=== PATIENT | female | born 1970 | race Two or more races ===

== ENCOUNTER 2017-06-23 16:35 | Emergency (ER) | payer OTHER ==
[~2017-06-23] VITALS: Ht 162.6 cm; Wt 104.3 kg
[2017-06-23 17:11] VITALS: BP 145/79
[2017-06-23] MEDS ORDERED: Norco 5mg/325mg tab ORAL ONE (17:15)
[2017-06-23] MEDS ORDERED: IBUPROFEN600 MG ORAL (17:42)
[2017-06-23 17:51] VITALS: BP 145/79
--- NOTE | 2017-06-23 21:26 | Emergency Room Report ---
History of Present Illness General Chief Complaint: Pain Source: Patient (HEIDE SCHULTE) Present Illness HPI The patient is a 46-year-old female presenting for bilateral hand pain. She states the pain began 2 weeks prior for no known reason primarily felt at the fingers. Pain has been increasing gradually and is now 8/10 dull ache. Worse with finger extension. She denies any injury to the area. 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 She denies any other symptoms including F, chills, rash, numbness/tingling (HEIDE SCHULTE P.A.) Allergies: Coded Allergies: No Known Allergies (Unverified , 06/23/17) Patient History Past Medical History: see triage record Pertinent Family History: none Reviewed Nursing Documentation: PMH: Agreed, PSxH: Agreed (HEIDE SCHULTE) Nursing Documentation-PMH Past Medical History: No Stated History (HEIDE SCHULTE) Review of Systems All Other Systems: negative except mentioned in HPI (HEIDE SCHULTE P.[employer]) Physical Exam Vital Signs Date Time Temp Pulse Resp B/P (MAP) Pulse Ox O2 Delivery O2 Flow Rate FiO2 06/23/17 16:39 97.9 88 20 145/79 99 Room Air Sp02 EP Interpretation: reviewed, normal General Appearance: no apparent distress, alert, GCS 15, non-toxic Head: normocephalic, atraumatic Eyes: bilateral eye normal inspection, bilateral eye PERRL ENT: hearing grossly normal, normal pharynx, no angioedema, normal voice Neck: full range of motion, supple/symm/no masses Musculoskeletal: back normal, gait/station normal, decreased range of motion - decreased extension of fingers on bilat hands, tender - dorsal pain with extension of fingers Neurologic: alert, oriented x3, responsive, motor strength/tone normal, sensory intact, speech normal Psychiatric: judgement/insight normal, memory normal, mood/affect normal, no suicidal/homicidal ideation Skin: normal color, no rash, warm/dry, well hydrated (HEIDE SCHULTE) Medical Decision Making PA Attestation Dr. Negrete is my supervising physician. Patient management was discussed with my supervising physician (HEIDE SCHULTE) Diagnostic Impression: Primary Impression: Right hand tendonitis Additional Impression: Left hand tendonitis ER Course The patient is a 46-year-old female presenting for bilateral hand pain Ddx considered include but not limited to sprain/strain, fracture, contusion, tendonitis, carpal tunnel syndrome, among others PE: Afebrile. NAD MSK: bilat hands are in flexion at rest. Noted pain with finger extension. SILT. Skin is warm and dry. No discoloration. No edema cap Refill less than 2 seconds X-ray of both hands are unremarkable The patient is discharged home with instructions for RICE and is given prescription for motrin. She is to followup with her primary doctor (HEIDE SCHULTE) Other X-Ray Diagnostic Results Other X-Ray Diagnostic Results #1: X-Ray ordered: L hand # of Views/Limited Vs Complete: 3 View Indication: Pain EP Interpretation: Yes Interpretation: no dislocation, no soft tissue swelling, no fractures Impression: No acute disease Electronically Signed by: KIMO Bobo Text I have reviewed the xray with my supervising physician and interpretation is that there are no fractures, dislocations or soft tissue swelling. Other X-Ray Diagnostic Results #2: X-Ray ordered: R hand # of Views/Limited Vs Complete: 3 View Indication: Pain EP Interpretation: Yes Interpretation: no dislocation, no soft tissue swelling, no fractures Impression: No acute disease Electronically Signed by: KIMO Bobo Text I have reviewed the xray with my supervising physician and interpretation is that there are no fractures, dislocations or soft tissue swelling. (HEIDE SCHULTE) Other X-Ray Diagnostic Results : Electronically Signed by: Mohinder documentation reviewed by me and is accurate, Ricky Negrete MD. both (Ricky Negrete M.D.) Last Vital Signs Date Time Temp Pulse Resp B/P (MAP) Pulse Ox O2 Delivery O2 Flow Rate FiO2 06/23/17 17:51 97.9 75 20 145/79 99 Room Air Status: improved (HEIDE SCHULTE.[employer]) Disposition: HOME, SELF-CARE Condition: Improved Scripts Ibuprofen* (MOTRIN*) 600 Mg Tablet 600 MG ORAL Q8H Y for For Pain, #30 TAB 0 Refills Prov: HEIDE SCHULTE 06/23/17 Referrals[facility] (PCP) Patient Instructions: REJI Sharp for Routine Care of Injuries Additional Instructions: I discussed my findings with the patient. All questions and concerns have been answered. Treatment and medication compliance have been addressed. I advised the patient that they need to follow up with PMD in 3-5 days. Return to ED if symptoms worsen, new symptoms arise, or if needed for any reason. Patient verbalized understanding of discharge instructions. HEIDE SCHULTE Jun 23, 2017 21:26 Ricky Negrete M.D. Jun 24, 2017 05:28
--- NOTE | 2017-06-24 12:26 | Diagnostic Imaging Report ---
Indication: pain Findings: 3 views of the left hand were obtained. Normal alignment is demonstrated. No acute fractures, erosions, or periosteal reaction are seen. Soft tissues are unremarkable. Impression: No acute findings.
--- NOTE | 2017-06-24 12:27 | Diagnostic Imaging Report ---
Indication: pain Findings: 3 views of the right hand were obtained. Normal bony mineralization and alignment are demonstrated. No acute fractures, erosions, or periosteal reaction are seen. Soft tissues are unremarkable. Impression: No acute findings.
== END 2017-06-23 17:52 | disposition home or self-care (01) ==
LOC: EMR 17:38
DX: M79.642 Pain in left hand (principal); M79.641 Pain in right hand; M77.9 Enthesopathy, unspecified
CPT/HCPCS: 99284

== ENCOUNTER 2017-10-16 13:43 | Emergency (ER) | payer OTHER ==
[~2017-10-16] VITALS: Ht 167.6 cm; Wt 95.3 kg
[~2017-10-16 13:43] MED LIST: IBUPROFEN600 MG ORAL
[2017-10-16] MEDS ORDERED: Phenazopyridine 200mg tab ORAL ONE (14:30)
[2017-10-16 14:47] LABS: APPEARANCE,URINE CLEAR; BILIRUBIN, URINE NEGATIVE (NEGATIVE); COLOR,URINE PALE YELLOW; GLUCOSE, URINE (UA) NEGATIVE (NEGATIVE); KETONES,URINE NEGATIVE (NEGATIVE); LEUKOCYTE ESTERASE ,URINE 1+ (NEGATIVE); NITRITE,URINE NEGATIVE (NEGATIVE); PH,URINE 7 (4.5-8.0); PROTEIN,URINE NEGATIVE (NEGATIVE); UROBILINOGEN,URINE NORMAL MG/DL (0.0-1.0)
--- NOTE | 2017-10-16 15:11 | Emergency Room Report ---
History of Present Illness General Chief Complaint: Female Urogenital Problems Source: Patient, Family Member (Yaa Leo) Present Illness HPI 46 YO Female Pt. presents to the ED c/o 06/25 in severity dysuria, and abdominal distention feeling after holding her urine for a long time yesterday. Reports intermittent dysuria denies hematuria, nausea, vomiting, low back pain , fevers or chills. Pt. describes urgency. She reports that when she urinates she has pain in the groin and radiates down into the bilateral medial thighs. Patient denies abdominal tenderness, vaginal d/c, vaginal bleeding, swollen tender lymph nodes. denies constipation or diarrhea. Denies CP, Palpitations, LOC, AMS, dizziness, Changes in Vision, Sensation, paresthesias, or a sudden severe headache. (Yaa Leo) Allergies: Coded Allergies: No Known Allergies (Unverified , 06/23/17) Patient History Past Medical History: see triage record Past Surgical History: none Pertinent Family History: none Last Menstrual Period: none Now: No Immunizations: UTD Reviewed Nursing Documentation: PMH: Agreed, PSxH: Agreed (Yaa Leo) Nursing Documentation-PMH Past Medical History: No Stated History (Yaa Leo) Review of Systems All Other Systems: negative except mentioned in HPI (Yaa Leo) Physical Exam Vital Signs Date Time Temp Pulse Resp B/P (MAP) Pulse Ox O2 Delivery O2 Flow Rate FiO2 10/16/17 14:01 98.1 87 18 136/90 98 Room Air Sp02 EP Interpretation: reviewed, normal General Appearance: no apparent distress, alert, GCS 15, non-toxic Head: normocephalic, atraumatic ENT: hearing grossly normal, normal voice Neck: full range of motion Respiratory: lungs clear, normal breath sounds, speaking full sentences Cardiovascular #1: regular rate, rhythm Gastrointestinal: normal bowel sounds, non tender, soft, other - abdominal exam is benign Genitourinary: normal inspection, no CVA tenderness Musculoskeletal: back normal, gait/station normal, normal range of motion Neurologic: alert, oriented x3, responsive, motor strength/tone normal, sensory intact, normal gait, speech normal, grossly normal Psychiatric: judgement/insight normal Skin: normal color, no rash, warm/dry, well hydrated (Yaa Leo) Medical Decision Making PA Attestation Dr. Negrete is my supervising Physician whom patient management has been discussed with. (Yaa Leo) Diagnostic Impression: Primary Impression: Cystitis ER Course 46 YO Female Pt. presents to the ED c/o 06/25 in severity dysuria, and abdominal distention feeling after holding her urine for a long time yesterday. Reports intermittent dysuria denies hematuria, nausea, vomiting, low back pain , fevers or chills. Pt. describes urgency. She reports that when she urinates she has pain in the groin and radiates down into the bilateral medial thighs. Patient denies abdominal tenderness, vaginal d/c, vaginal bleeding, swollen tender lymph nodes. denies constipation or diarrhea. Denies CP, Palpitations, LOC, AMS, dizziness, Changes in Vision, Sensation, paresthesias, or a sudden severe headache. Ddx considered but are not limited to UTi , Pyelo, STI, Stone, Cystitis Vital signs: are WNL, pt. is afebrile H&PE are most consistent with possible UTI, no evidence to suggest acute abdomen at this time. ORDERS: - UA labs are attached : Unremarkable- occasional bacteria no inflammatory marker elevation no wbc's. ED INTERVENTIONS: -Pyridium PO DISCHARGE: At this time pt. is stable for d/c to home. Will provide printed patient care instructions, and any necessary prescriptions. Care plan and follow up instructions have been discussed with the patient prior to discharge. Labs Test 10/16/17 14:17 Urine Color Pale yellow Urine Appearance Clear Urine pH 7 (4.5-8.0) Urine Specific [place] 1.015 (1.005-1.035) Urine Protein Negative (NEGATIVE) Urine Glucose (UA) Negative (NEGATIVE) Urine Ketones Negative (NEGATIVE) Urine Occult Blood Negative (NEGATIVE) Urine Nitrite Negative (NEGATIVE) Urine Bilirubin Negative (NEGATIVE) Urine Urobilinogen Normal MG/DL (0.0-1.0) Urine Leukocyte Esterase 1+ (NEGATIVE) Urine RBC 0-2 /HPF (0 - 2) Urine WBC 2-4 /HPF (0 - 2) Urine Squamous Epithelial Cells Few /LPF (NONE/OCC) Urine Bacteria Occasional /HPF (NONE) (Yaa Leo) Last Vital Signs Date Time Temp Pulse Resp B/P (MAP) Pulse Ox O2 Delivery O2 Flow Rate FiO2 10/16/17 14:01 98.1 87 18 136/90 98 Room Air (Yaa Leo) Last Vital Signs Date Time Temp Pulse Resp B/P (MAP) Pulse Ox O2 Delivery O2 Flow Rate FiO2 10/16/17 15:34 98.7 80 17 111/72 95 Room Air (Ricky Negrete M.D.) Disposition: HOME, SELF-CARE Condition: Stable Scripts Phenazopyridine Hcl* (PYRIDIUM*) 200 Mg Tablet 200 MG ORAL THREE TIMES A DAY for 3 Days, #9 TAB 0 Refills Prov: Yaa Leo 10/16/17 Referrals: [facility] (PCP) Patient Instructions: Interstitial Cystitis, Medical Screening Exam Additional Instructions: Take medications as directed. Follow up with a Primary Care Provider in 3-5 days, even if your symptoms have resolved. --Please review list of primary care clinics, if you do not already have a primary care provider Return sooner to ED if new symptoms occur, or current symptoms become worse. - Please note that this Emergency Department Report was dictated using [employer] clerk technology software, occasionally this can lead to erroneous entry secondary to interpretation by the dictation equipment. Pyridium will cause your urine to change color (Red/[place]), this is a normal side effect of the medication. Yaa Leo Oct 16, 2017 15:11 Ricky Negrete M.D. Oct 21, 2017 06:47
[2017-10-16] MEDS ORDERED: PHENAZOPYRIDIN200 MG ORAL (15:12)
[2017-10-16 15:31] VITALS: BP 111/72
[2017-10-16 15:34] VITALS: BP 111/72
== END 2017-10-16 15:34 | disposition home or self-care (01) ==
LOC: EMR 14:16
DX: N30.90 Cystitis, unspecified without hematuria (principal)
CPT/HCPCS: 81003; 99283

== ENCOUNTER 2017-10-20 17:28 | Emergency (ER) | payer OTHER ==
[~2017-10-20] VITALS: Ht 165.1 cm; Wt 95.3 kg
[~2017-10-20 17:28] MED LIST changes: +PHENAZOPYRIDIN200 MG ORAL
--- NOTE | 2017-10-20 18:25 | Emergency Room Report ---
History of Present Illness General Chief Complaint: Abdominal Pain Source: Patient Present Illness HPI 47 yo female patient presents to ER complaining of abdominal and suprapubic pain. Patient denies frequency, urgency, vaginal discharge, hematuria. Patient denies nausea, vomiting, sore throat. Patient denies constipation, diarrhea. Patient reports being seen in ER " a few days ago" and being given phenazopyridine for pain; patient reports mild relief of symptoms with medication, states she is out of the pain medication. Patient denies fever, chest pain, SOB, RIOS, rash. Allergies: Coded Allergies: No Known Allergies (Unverified , 06/23/17) Patient History Past Medical History: see triage record Pertinent Family History: none Social History: Denies: smoking, alcohol use, drug use Immunizations: UTD Reviewed Nursing Documentation: PMH: Agreed, PSxH: Agreed Nursing Documentation-PMH Past Medical History: No Stated History Review of Systems All Other Systems: negative except mentioned in HPI Physical Exam Vital Signs Date Time Temp Pulse Resp B/P (MAP) Pulse Ox O2 Delivery O2 Flow Rate FiO2 10/20/17 17:54 98.8 95 18 116/78 95 Room Air Sp02 EP Interpretation: reviewed, normal General Appearance: no apparent distress, alert, GCS 15, non-toxic Head: normocephalic, atraumatic Eyes: bilateral eye normal inspection, bilateral eye PERRL ENT: hearing grossly normal, normal pharynx, no angioedema, normal voice Neck: full range of motion Respiratory: chest non-tender, lungs clear, normal breath sounds, speaking full sentences Cardiovascular #1: regular rate, rhythm, no edema Gastrointestinal: normal bowel sounds, non tender, soft, no mass, non-distended , no guarding, no rebound, tenderness - LUQ, supraprubic, other - negative Rovsings, negative tenderness at McBurney's point Genitourinary: no CVA tenderness, no vertebral tenderness Musculoskeletal: back normal, gait/station normal, normal range of motion, non- tender Neurologic: alert, oriented x3, responsive, motor strength/tone normal, sensory intact, speech normal Psychiatric: mood/affect normal Skin: normal color, no rash, warm/dry, well hydrated Medical Decision Making PA Attestation Dr. Amaya is my supervising Physician whom patient management has been discussed with. Diagnostic Impression: Primary Impression: Urinary tract infection ER Course Pt presents to ED c/o suprapubic pain. DDX considered but are not limited to cystitis, pyelonephritis, STI, vaginitis. VITAL SIGNS are WNL, patient is afebrile. ORDERS: UA with reflux ED INTERVENTIONS: Ibuprofen for pain ER COURSE UA results (attached) indicate UTI, will treat with antibiotics. Patient is resting comfortably in chair, nontoxic appearing, in no acute distress. Patient states they feel better and is ready to go home. -Rx provided for Bactrim. -Rx provided for Phenazopyridine for pain. Will provide with patient care instructions and any necessary prescriptions. Patient understands and agrees to treatment plan. Patient encouraged to drink plenty of fluids. Patient to take medication as instructed. Care plan and follow-up instructions provided. Patient questions asked and answered. Patient instructed to follow-up with primary care provider in 3 - 5 days. ER precautions given. Patient instructed to return to ER immediately for any new or worsening of symptoms. Including but not limited to fever, worsening pain , intractable vomiting.. Labs Test 10/20/17 19:40 Urine Color Yellow Urine Appearance Slightly cloudy Urine pH 5 (4.5-8.0) Urine Specific [place] 1.025 (1.005-1.035) Urine Protein 2+ (NEGATIVE) Urine Glucose (UA) Negative (NEGATIVE) Urine Ketones Negative (NEGATIVE) Urine Occult Blood Negative (NEGATIVE) Urine Nitrite Positive (NEGATIVE) Urine Bilirubin 1+ (NEGATIVE) Urine Ictotest Negative Urine Urobilinogen 1 MG/DL (0.0-1.0) Urine Leukocyte Esterase 2+ (NEGATIVE) Urine RBC 0 /HPF (0 - 2) Urine WBC 15-20 /HPF (0 - 2) Urine Squamous Epithelial Cells Many /LPF (NONE/OCC) Urine Bacteria Many /HPF (NONE) Last Vital Signs Date Time Temp Pulse Resp B/P (MAP) Pulse Ox O2 Delivery O2 Flow Rate FiO2 10/20/17 17:54 98.8 95 18 116/78 95 Room Air Disposition: HOME, SELF-CARE Condition: Stable Scripts Phenazopyridine Hcl* (PYRIDIUM*) 200 Mg Tablet 200 MG ORAL THREE TIMES A DAY, #14 TAB 0 Refills Prov: Federico Snider P.A. 10/20/17 Trimethoprim/Sulfamethoxazole 160/800* (BACTRIM DS TABLET*) 1 Each Tablet 1 TAB ORAL TWICE A DAY for 7 Days, #14 TAB Prov: Federico Snider 10/20/17 Patient Instructions: Urinary Tract Infection, [id number] Additional Instructions: Followup with primary care provider in 3 -5 days. Take medications as directed. Patient questions asked and answered. ER precautions given, patient instructed to return to ER immediately for any new or worsening of symptoms. Federico Snider Oct 20, 2017 18:25
[2017-10-20 19:49] LABS: APPEARANCE,URINE SLIGHTLY CLOUDY; BILIRUBIN, URINE 1+ (NEGATIVE); GLUCOSE, URINE (UA) NEGATIVE (NEGATIVE); KETONES,URINE NEGATIVE (NEGATIVE); LEUKOCYTE ESTERASE ,URINE 2+ (NEGATIVE); NITRITE,URINE POSITIVE (NEGATIVE); PH,URINE 5 (4.5-8.0); PROTEIN,URINE 2+ (NEGATIVE); UROBILINOGEN,URINE 1 MG/DL (0.0-1.0)
[2017-10-20 20:02] LABS: COLOR,URINE YELLOW
[2017-10-20] MEDS ORDERED: BACTRIM DS TAB1 EAC1 ORAL (20:02)
[2017-10-20] MEDS ORDERED: PHENAZOPYRIDIN200 MG ORAL (20:02)
[2017-10-20 20:10] VITALS: BP 116/78
== END 2017-10-20 20:10 | disposition home or self-care (01) ==
LOC: EMR 18:30
DX: N39.0 Urinary tract infection, site not specified (principal)
CPT/HCPCS: 81003; 87086; 99283

== ENCOUNTER 2018-03-08 15:08 | Emergency (ER) | payer OTHER ==
[~2018-03-08] VITALS: Ht 160 cm; Wt 99.8 kg
[~2018-03-08 15:08] MED LIST changes: +BACTRIM DS TAB1 EAC1 ORAL
[2018-03-08] MEDS ORDERED: NKM (15:21)
[2018-03-08 15:25] VITALS: BP 121/71
[2018-03-08] MEDS ORDERED: TYLENOL EXTRA500 MG ORAL (15:45)
[2018-03-08] MEDS ORDERED: Acetaminophen 500mg (ES) tab ORAL ONE (15:45)
--- NOTE | 2018-03-08 15:45 | Emergency Room Report ---
History of Present Illness General Chief Complaint: Headache Source: Patient Present Illness [facility] 47-year-old female patient presents ER complaining of headache past few days. Patient denies nausea or vomiting. denies vision changes or hearing loss, denies vertigo.denies fever or neck pain denies difficulty walking or other acute symptoms. Denies chest pain, shortness breath, abdominal pain. Reports history of similar symptoms in the past, denies worse headache of life. denies other acute symptoms. Denies neuro symptoms. Denies recent illness, cough, congestion, sore throat. Reports headache is over her entire head denies localization of headache to one side or behind eye. Denies rhinorrhea. denies dysuria, hematuria, pelvic pain. Reports took Advil at home with mild relief of symptoms, last dosage this morning. Denies recent injury or trauma. Allergies: Coded Allergies: No Known Allergies (Unverified , 06/23/17) Patient History Past Medical History: see triage record Last Menstrual Period: Post Reviewed Nursing Documentation: PMH: Agreed; PSxH: Agreed Nursing Documentation-PMH Past Medical History: No Stated History Review of Systems All Other Systems: negative except mentioned in HPI Physical Exam Vital Signs Date Time Temp Pulse Resp B/P (MAP) Pulse Ox O2 Delivery O2 Flow Rate FiO2 03/08/18 15:17 98.5 89 15 121/71 95 Room Air 98.4 Sp02 EP Interpretation: reviewed, normal General Appearance: well appearing, no apparent distress, alert, GCS 15, non- toxic Head: normocephalic, atraumatic, other - No TTP of maxillary or frontal sinuses or ove [place] bilaterally Eyes: bilateral eye normal inspection, bilateral eye PERRL, bilateral eye EOMI ENT: hearing grossly normal, normal pharynx, no angioedema, normal voice, TMs + canals normal, uvula midline, moist mucus membranes Neck: full range of motion, no meningismus Respiratory: lungs clear, normal breath sounds, no rhonchi, no respiratory distress, no accessory muscle use, no wheezing, speaking full sentences Cardiovascular #1: regular rate, rhythm, no edema Gastrointestinal: non tender, soft, no mass, non-distended, no guarding, no rebound Genitourinary: no CVA tenderness Musculoskeletal: back normal, digits/nails normal, gait/station normal, normal range of motion, non-tender Neurologic: alert, oriented x3, responsive, water mechanic III-XII nml as tested, motor strength/tone normal, sensory intact, cerebellar normal, normal gait, speech normal Psychiatric: mood/affect normal Skin: no rash Medical Decision Making PA Attestation Dr. Dolan is my supervising Physician whom patient management has been discussed with. Diagnostic Impression: Primary Impression: Tension headache ER Course Pt presents to ED c/o headache. no fever, no neck pain, no meningeal signs, low suspicion for meningitis. DDX considered but are not limited to migraine, cluster RIOS, tension RIOS, meningitis, ICH, meningitis, HTN, influenza, UTI. denies dysuria, hematuria, fever, vomiting, low suspicion for UTI at this time will not order UA. VITAL SIGNS are WNL, patient is afebrile ER COURSE ordered 1,000mg of Tylenol. physical exam benign, no focal neuro deficits, cranial nerves intact as tested, does not require CT imaging at this time. Denies worse headache of life, low suspicion for subarachnoid hemorrhage. History consistent with tension headache, treat with Tylenol. Instructed patient to follow-up with primary care doctor to discuss further treatment and referral to neurology as needed, discuss further imaging at that time. Patient reports pain improved. Patient is AOx3, neurologically intact, nontoxic appearing, and ambulatory. patient resting comfortably in chair, smiling and laughing, no focal neuro deficits, talking and able to ambulate independently, low suspicion for underlying etiology, okay for discharge home. DISCHARGE: -Rx provided Tylenol At this time pt is stable for d/c to home. Patient is resting comfortably, in no acute distress, nontoxic appearing, talking and smiling. Will provide with patient care instructions and any necessary prescriptions. Patient to take medication as instructed. Care plan and follow-up instructions provided. Patient questions asked and answered. Patient instructed to follow-up with primary care provider in the next 3 days and discuss further referral with PCP to neurologist. ER precautions given. Patient instructed to return to ER immediately for any new or worsening of symptoms including but not limited to fever, neck stiffness , vision changes, and neurological symptoms. - Please note that this Emergency Department Report was dictated using [employer] rep technology software, occasionally this can lead to erroneous entry secondary to interpretation by the dictation equipment. Last Vital Signs Date Time Temp Pulse Resp B/P (MAP) Pulse Ox O2 Delivery O2 Flow Rate FiO2 6/23/18 15:25 98.4 74 15 121/71 95 Room Air 98.4 Disposition: HOME, SELF-CARE Condition: Stable Scripts Acetaminophen* (TYLENOL EXTRA STRENGTH*) 500 Mg Tablet 500 MG ORAL Q8H PRN for Prn Headache/Temp > 101, #30 TAB 0 Refills Prov: Federico Snider 03/08/18 Patient Instructions: Tension Headache Additional Instructions: Followup with primary care provider in 3 -5 days. Discuss further referral to neuro and imaging at that time as needed. Take medications as directed. Patient questions asked and answered. ER precautions given, patient instructed to return to ER immediately for any new or worsening of symptoms. Federico Snider Mar 08, 2018 15:45
[2018-03-08 15:58] VITALS: BP 121/71
== END 2018-03-08 15:58 | disposition home or self-care (01) ==
LOC: EMR 15:50
DX: G44.209 Tension-type headache, unspecified, not intractable (principal)
CPT/HCPCS: 99283

== ENCOUNTER 2019-09-02 23:42 | Emergency (ER) | payer OTHER ==
[~2019-09-02] VITALS: Ht 170.2 cm; Wt 98.0 kg
[~2019-09-02 23:42] MED LIST changes: +NKM; +TYLENOL EXTRA500 MG ORAL
--- NOTE | 2019-09-03 00:02 | NUR ---
ED Nurse Note: pt presents to ED c/o dizziness and 10/10 RIOS since this AM. per pt, the dizziness come and goes, even when she is not physically exerting herself. pt reports the RIOS px being in the front of her forehead that radiates to the back of the head. pt denies any N/V/D or respiratory concerns at this time. pt also denies any medical history. pt has a BP of 168/72, vital signs are otherwise stable. pt is currently refusing anything that requires a needle. she is "very afraid" of needles. ERMD notified.
[2019-09-03 00:06] VITALS: BP 142/69
[2019-09-03] MEDS ORDERED: Ketorolac 30mg Inj IV ONE (00:30)
--- NOTE | 2019-09-03 00:45 | NUR ---
ED Nurse Note: pt refused CT scan, she states she would prefer labwork be done first. ROLANDO is aware
[2019-09-03 01:00] LABS: BASOPHILS % (AUTO) 1.7 % (0.0-2.0); EOSINOPHILS % (AUTO) 2.1 % (0.0-3.0); HEMATOCRIT 41.7 % (37.0-47.0); HEMOGLOBIN 14.1 G/DL (12.0-16.0); LYMPHOCYTES % (AUTO) 46.8 % (20.0-45.0); MEAN CORPUSCULAR VOLUME 85 FL (80-99); MONOCYTES % (AUTO) 7.3 % (1.0-10.0); PLATELET COUNT 283 K/UL (150-450); RED BLOOD COUNT 4.92 M/UL (4.20-5.40); RED CELL DISTRIBUTION WIDTH 11.7 % (11.6-14.8)
--- NOTE | 2019-09-03 01:08 | NUR ---
ED Nurse Note: pt is still c/o RIOS px, she has fluids running and was given 15 mg of toradol IV 16 minutes ago. per daughter, "the pain might be getting worse." ERMD notified. will continue to monitor pt.
[2019-09-03 01:15] LABS: APPEARANCE,URINE CLEAR; BILIRUBIN, URINE NEGATIVE (NEGATIVE); COLOR,URINE PALE YELLOW; GLUCOSE, URINE (UA) NEGATIVE (NEGATIVE); KETONES,URINE NEGATIVE (NEGATIVE); NITRITE,URINE NEGATIVE (NEGATIVE); PH,URINE 6.5 (4.5-8.0); PROTEIN,URINE NEGATIVE (NEGATIVE); UROBILINOGEN,URINE NORMAL MG/DL (0.0-1.0)
[2019-09-03 01:15] LABS: ANION GAP 9 mmol/L (5-15); BLOOD UREA NITROGEN 13 mg/dL (7-18); CALCIUM 9.7 MG/DL (8.5-10.1); CARBON DIOXIDE 29 MMOL/L (21-32); CHLORIDE 105 MMOL/L (98-107); CREATININE 0.6 MG/DL (0.55-1.30); POTASSIUM 3.8 MMOL/L (3.5-5.1); SODIUM 143 MMOL/L (136-145)
[2019-09-03 01:19] LABS: ALANINE AMINOTRANSFERASE 22 U/L (12-78); ALBUMIN 3.9 G/DL (3.4-5.0); ALBUMIN/GLOBULIN RATIO 1.1 (1.0-2.7); ALKALINE PHOSPHATASE 108 U/L (46-116); ASPARTATE AMINO TRANSFERASE 13 U/L (15-37); BILIRUBIN,TOTAL 0.5 MG/DL (0.2-1.0)
[2019-09-03 01:25] LABS: LEUKOCYTE ESTERASE ,URINE 1+ (NEGATIVE)
[2019-09-03 02:00] VITALS: BP 140/70
--- NOTE | 2019-09-03 02:04 | Emergency Room Report ---
History of Present Illness General Chief Complaint: Dizziness Source: Patient, Family Member Present Illness HPI 48-year-old female who presents with dizziness.Patient reports symptoms started early this morning associated with a headache. She reports headache as all over her head, pressure-like sensation, with a 10 out of 10 severity.. Her dizziness is lightheaded in nature, not room spinning. Symptoms started slowly. She took 2 tablets of Advil at 4 PM with minimal improvement. She denies any blurry vision. She denies any trauma. She denies tinnitus. Allergies: Coded Allergies: No Known Allergies (Unverified , 06/23/17) Nursing Documentation-[facility] Past Medical History: No Stated History Review of Systems Constitutional: Denies: chills, fever Respiratory: Denies: cough, shortness of breath Cardiovascular: Denies: chest pain, palpitations Gastrointestinal: Denies: diarrhea, vomiting Genitourinary: Denies: hematuria, pain Musculoskeletal: Denies: joint swelling Skin: Denies: rash, lesions Neurological: Reports: headache, dizziness Physical Exam Vital Signs Date Time Temp Pulse Resp B/P (MAP) Pulse Ox O2 Delivery O2 Flow Rate FiO2 09/02/19 23:47 97.9 73 19 142/69 (93) 97 Room Air Sp02 EP Interpretation: reviewed General Appearance: well appearing, no apparent distress, non-toxic Head: normocephalic, atraumatic Eyes: bilateral eye normal inspection, bilateral eye EOMI ENT: hearing grossly normal, EOM grossly intact, moist mucus membranes Neck: supple Respiratory: lungs clear, normal breath sounds, no respiratory distress, speaking full sentences Cardiovascular #1: regular rate, rhythm, normal capillary refill Cardiovascular #2: 2+ radial (R), 2+ radial (L) Gastrointestinal: soft, non-distended Rectal: deferred Musculoskeletal: moves extm spontaneously, no lower extremity edema Neurologic: alert, motor strength/tone normal, wastewater treatment operator III-XII nml as tested, oriented, oriented x3, sensory intact, no focal defects Psychiatric: mood/affect normal Skin: warm/dry, normal turgor Medical Decision Making Diagnostic Impression: Primary Impression: Dizziness Additional Impression: Headache ER Course 48-year-old female presenting with dizziness, and associated headache. Took Advil with no improvement. Physical exam within normal limits. Differential includes, but is not limited to: Tension headache, vertigo, intracranial hemorrhage, CVA, intracranial mass, Mnire's disease, Doubt intracranial hemorrhage, CVA or intracranial mass given patient has no neurological deficits. Likely vertigo versus tension headache causing symptoms. Discussed performing CT scan in the emergency room at this time or patient following up with neurology. Patient would like to follow-up as outpatient and does not want scan. I recommended to be seen by her primary care doctor in 1 to 2 days to be reevaluated. Patient also recommended to return to emergency room if symptoms persisted or did not improve. Lab Results Impression Lab results reviewed noted to be within normal limits. Last Vital Signs Date Time Temp Pulse Resp B/P (MAP) Pulse Ox O2 Delivery O2 Flow Rate FiO2 09/03/19 01:10 97.9 09/03/19 00:06 90 19 142/69 97 Room Air Disposition: HOME, SELF-CARE Condition: Stable Referrals: NOT CHOSEN IPA/MD,REFERRING (PCP) Patient Instructions: Dizziness, General Headache Without Cause Additional Instructions: Please follow-up with your primary care doctor in 2 to 3 days for reevaluation. Please see neurologist as soon as possible for further testing. Return to emergency room if you have any worsening symptoms or any new symptoms. Alonzo Cade M.D. Sep 03, 2019 02:04
[2019-09-03 02:15] VITALS: BP 140/70
--- NOTE | 2019-09-03 02:15 | NUR ---
ER DISCHARGE NOTE: Patient is cleared to be discharged per ERMD, pt is aox4, on room air, with stable vital signs. pt was given dc instructions, pt was able to verbalize understanding, pt id band and iv site removed without complications. pt is able to ambulate with steady gait. pt took all belongings.
== END 2019-09-03 02:15 | disposition home or self-care (01) ==
LOC: EMR 23:59
DX: R42 Dizziness and giddiness (principal); R51 Headache
CPT/HCPCS: 36415; 80053; 81003; 84484; 85025; 93005; 96361; 96374; J1885; J7030; Z7502; 99284

== ENCOUNTER 2020-09-21 08:54 | Emergency (ER) | payer OTHER ==
[~2020-09-21] VITALS: Ht 167.6 cm; Wt 97.5 kg
--- NOTE | 2020-09-21 10:04 | NUR ---
ED Nurse Note: pt c/o cough and congestion with a sore throat. tolerates covid swab well. no fever and no dyspnea c/o no n/v
[2020-09-21 10:05] VITALS: BP 150/85
[2020-09-21] MEDS ORDERED: GUAIFENESIN AC473 ML ORAL (11:45)
[2020-09-21] MEDS ORDERED: ZITHROMAX250 MG ORAL (11:45)
[2020-09-21] MEDS ORDERED: PREDNISONE20 MG ORAL (11:45)
[2020-09-21] MEDS ORDERED: TYLENOL EXTRA500 MG ORAL (11:45)
--- NOTE | 2020-09-21 11:45 | Emergency Room Report ---
History of Present Illness General Chief Complaint: Upper Respiratory Illness Source: Patient Present Illness HPI 49F no PMHx c/o sore throat and dry cough x 2 days. 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 Quality: Dry cough Past medical history: Denies Past surgical history: Denies Smoking: Denies Alcohol use: Denies Drug use: Denies Review of systems: CONST: No fevers or chills, No night sweats PULMONARY: ++ cough, No shortness of breath CARDIAC: No chest pain, No palpitations GI: No vomiting, No diarrhea , No melena_or_BRBPR : No dysuria, No hematuria, No discharge NEURO: No new_focal_weakness_or_numbness, No confusion, No vision changes 14 point Review of Systems is otherwise negative except per HPI Physical Exam: GENERAL: Awake_alert_ nontoxic, no acute distress Spo2 95% on RA -normal EYES: Extraocular muscles are intact. Conjunctivae clear. Lids without swelling ENT: External nose and ear normal_in_appearance. Oropharynx clear. Head_atraumatic, Moist_oral_mucosa NECK: No JVD. No meningismus. No thyromegaly. Supple. Trachea midline RESP: Normal respiratory effort. Symmetric rise. No stridor. Clear_to_a uscultation_No_rales_No_wheezes Speaks in full and complete sentences CARDIAC: Regular rate and regular rhytm. No_significant pedal edema. ABDOMEN: Soft. Nondistended. Nontender_No_rebound_or_guarding. MSK: Normal muscle tone, without rigidity. Extremities without asymmetric deformity or swelling. SKIN: Warm and dry. No visible cyanosis or pallor NEUROLOGIC: Alert, oriented x3. Motor_and_sensation_grossly_intact. No truncal ataxia. Gait_normal Psych: Normal mood and affect, normal judgment and insight - COORDINATION OF CARE Case was discussed with: Patient, patient's family Any labs and imaging that were ordered were interpreted as part of the medical decision making: Medical Decision Making/Plan: LEXYx: includes COVID-19 / coronavirus infection, URI, bronchitis, viral syndrome, postnasal drip, versus less likely pneumonia, among others. The patient is nontoxic and well-appearing and has no significant shortness of breath or fever . The patient exhibits no evidence of respiratory distress. Based on the patients presenting signs, symptoms, exam, and risk factors (living in an area endemic for a coronavirus outbreak = [place]), the patient has been screened for coronavirus infection and is confirmed of having COVID 19. Chest x-ray revealed no evidence of obvious consolidation of infiltrate. No evidence of ENT emergency, airway patent, tolerating oral liquids and solids. No stridor or difficulty breathing. No ambulatory hypoxia The patient was instructed to follow up with their physician and instructed to return if worsens, progressively worsening shortness of breath or difficulty breathing, persistent fever, chest pains or discomfort, inability to keep medication or fluids down with or without vomiting, or any other new, worsening or concerning symptoms Patient was nontoxic with benign vital signs. Patient did not meet admission criteria and was stable for outpatient therapy. Patient was instructed to home quarantine for 14 days or until 3 days after their last fever, whichever is longer. Appropriate precautions were given. Strict return precautions given, including but limited to: Patient educated to notify a healthcare professional if they develop further symptoms that include chest pain, palpitations, signific ant SOB, fever, or other concerning symptoms. Discussed supportive care with rest, hydration, frequent handwashing and Tylenol and Motrin sexw-[id number]-[id number] as needed for pain or fevers. Discussed strict return precautions. Verbal discharge with written instructions were given for COVID-19. Patient is instructed to follow up with their primary care provider in 1-2 days, or return to the ED for worsening symptoms. Return to ED precautions were given. 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 Mediastinum normal. No infiltrate. Impression: No acute disease The X-ray(s) were independently viewed and interpreted contemporaneously Electronically signed by Malu odonnell DO Reevaluation Time: :43 Last Vital Signs Date Time Temp Pulse Resp B/P (MAP) Pulse Ox O2 Delivery O2 Flow Rate FiO2 09/21/20 10:05 98.2 88 16 150/85 95 Room Air Status: improved Disposition: HOME, SELF-CARE Admit Decision Time: :43 Condition: Stable Scripts Acetaminophen* (TYLENOL EXTRA STRENGTH*) 500 Mg Tablet 500 MG ORAL Q8H PRN for Prn Headache/Temp > 101, #30 TAB 0 Refills Prov: Malu Trujillo D.O. 09/21/20 Guaifenesin/Codeine Phosphate (GUAIFENESIN AC COUGH SYRUP) 473 Ml Liquid 1 TSP ORAL Q8H PRN for For Cough, #150 ML 0 Refills Prov: Malu Trujillo D.O. 09/21/20 Prednisone* (PREDNISONE*) 20 Mg Tablet 40 MG ORAL DAILY, #10 TAB Prov: Malu Trujillo D.O. 09/21/20 Azithromycin* (ZITHROMAX*) 250 Mg Tablet 250 MG ORAL DAILY, #6 TAB 0 Refills Take two tables once daily for 1 day, then one tablet once daily for 4 days. Prov: Malu Trujillo D.O. 09/21/20 Referrals: KAREN DENNEY,REFERRING (PCP) Patient Instructions: Upper Respiratory Infection, Adult Additional Instructions: Your evaluation suggests that you are suffering from a viral infection producing a viral syndrome. You can sign up for testing with TONNY REDMAN at the following website as discussed [email or web address] Symptoms of a viral syndrome may include fever, sore throat, headache, body aches and pains, generalized weakness and fatigue, and runny nose. You do not show signs or symptoms suggestive of a serious or life threatening illness. This illness may be caused by a number of different viruses, including Influenza A or B or COVID-19. These viruses are highly contagious and spread rapidly from person to person via coughing and sneezing of the virus or by contaminated surface contact with nasal or other respiratory secretions. These viruses cause a similar combination of signs and symptoms which are typically much more severe than the common cold. Typically they begin with the rapid onset of fever, often high (over 102), body aches, fatigue, headache, and usually upper respiratory tract infections symptoms such as cough, runny nose, and sore throat. The illness typically lasts 7-10 days, with the fever and feelings of weakness and body aches usually lasting 3-5 days. Your own immune system fights off these infections. Only rarely do secondary bacterial infections occur (such as bacterial pneumonia) and can be serious. At this time your symptoms do not appear serious, however, there are limitations to online visits and if you are not improving you may need to be evaluated by a doctor in person and that doctor may need to do additional tests. INSTRUCTIONS: Illnesses such as yours typically resolve on their own with time however you must remember to stay hydrated and drink 2-3 times your normal fluid intake, as fever and your increased metabolism in fighting the infection uses more water. Fever control is important to help you feel better and to help prevent dehydration. Acetaminophen is an excellent choice for fever control and other symptoms (as long as you are not allergic to the medication). Rest is also important in helping your body fight this infection. Over the counter cough and decongestant medications are safe (as long as you dont have uncontrolled high blood pressure) and may help the cough and congestion slightly. As these viruses are highly contagious, good hand washing habits, and covering your cough and sneeze help prevent spread. Fever can be a sign of a serious infection and it is imperative that you go directly to an Emergency Department for serious symptoms such as weakness, confusion, significant shortness of breath, abdominal pain, or severe headache. Close follow up with a physician is important if you are not improving over the next few days or you experience worsening of your symptoms. Although it is impossible to know at this point if you have COVID-19 (the Johnson virus), please quarantine yourself and anyone else that is residing with you for the longer of the following time periods: 14 days OR 3 days after the last of your symptoms has resolved CONTACT THE DOCTOR RIGHT AWAY if you develop worsening symptoms such as shortness of breath, chest pain, neck stiffness, confusion or any other new, worsening, or concerning symptoms. For emergencies contact 911 immediately. Malu Trujillo D.O. Sep 21, 2020 11:45
--- NOTE | 2020-09-21 12:08 | NUR ---
ED Nurse Note: Pt cleared by health care Provider for discharge. DC instructions/prescription was given and explained to pt and verbalized understanding of teachings. All medical devices such as ID band removed. Pt is AAO x4, ambulatory and left with all personal belongings. family give3n work note and awre that everyone in household must quarantine.
[2020-09-21 12:12] VITALS: BP 144/85
--- NOTE | 2020-09-21 14:15 | Diagnostic Imaging Report ---
Indication: Cough Technique: One view of the chest Comparison: none Findings: Lungs and pleural spaces are clear. Heart size is normal. Impression: No acute process
== END 2020-09-21 12:14 | disposition home or self-care (01) ==
LOC: EMR 10:02
DX: U07.1 COVID-19 (principal)
CPT/HCPCS: 71045; 99283; U0002; U0004